=== PATIENT | female | born 1955 | race Two or more races ===

== ENCOUNTER 2023-03-29 19:16 | Inpatient (IN) | payer MEDICARE, OTHER ==
[~2023-03-29] VITALS: Ht 160 cm; Wt 93.0 kg
[2023-03-29 22:06] LABS: BASOPHILS % (AUTO) 0.5 % (0.0-2.0); EOSINOPHILS # (AUTO) 0.1 K/uL (0.0-0.7); EOSINOPHILS % (AUTO) 0.8 % (0.0-6.0); HEMATOCRIT 49 % (33-45); HEMOGLOBIN 16.2 g/dL (11.5-14.8); LYMPHOCYTES # (AUTO) 2.9 K/uL (0.8-4.8); LYMPHOCYTES % (AUTO) 35.8 % (20.0-44.0); MEAN CORPUSCULAR HEMOGLOBIN 29 PG (26.0-33.0); MEAN CORPUSCULAR HGB CONC 33 g/dl (31.0-36.0); MEAN CORPUSCULAR VOLUME 89 fL (82-100); MONOCYTES # (AUTO) 0.6 K/uL (0.1-1.30); MONOCYTES % (AUTO) 7.2 % (2.0-12.0); NEUTROPHILS # (AUTO) 4.5 K/uL (1.8-8.9); NEUTROPHILS % (AUTO) 55.7 % (43.0-81.0); PLATELET COUNT (AUTO) 182 K/uL (150-450); RED BLOOD CELL COUNT(AUTO) 5.49 MIL/uL (4.0-5.2); RED CELL DISTRIBUTION WIDTH 14.3 % (11.5-15.0); WHITE BLOOD COUNT (AUTO) 8.1 K/uL (4.3-11.0)
[2023-03-29 22:35] LABS: ALANINE AMINOTRANSFERASE 18 U/L (12-78); ALCOHOL, BLOOD < 3 mg/dL (0-10); ALKALINE PHOSPHATASE 118 U/L (46-116); ASPARTATE AMINOTRANSFERASE 12 U/L (15-37); BILIRUBIN,DIRECT 0.1 mg/dL (0.0-0.2); BILIRUBIN,TOTAL 0.6 mg/dL (0.2-1.0); CALCIUM, SERUM 9.9 mg/dL (8.5-10.1); CARBON DIOXIDE 27 mmol/L (21-32); CHLORIDE 104 mmol/L (98-107); CREATININE 1.1 mg/dL (0.6-1.3); GLUCOSE 110 mg/dL (74-106); POTASSIUM 4.4 mmol/L (3.5-5.1); SODIUM SERUM 140 mmol/L (136-145); TOTAL PROTEIN, SERUM 7.7 g/dL (6.4-8.2); UREA NITROGEN, BLOOD 11 mg/dL (7-18)
[2023-03-29 22:36] LABS: ACETAMINOPHEN 0 ug/ml (10-30); SALICYLATE 0.9 mg/dL (2.8-20.0)
[2023-03-30 00:33] LABS: APPEARANCE,URINE CLEAR (CLEAR); BILIRUBIN,URINE NEGATIVE (NEGATIVE); BLOOD, URINE NEGATIVE Ery/uL (NEGATIVE); COLOR,URINE YELLOW (YELLOW); KETONES,URINE NEGATIVE (NEGATIVE); LEUKOCYTE ESTERASE ,URINE NEGATIVE (NEGATIVE); NITRITE, URINE NEGATIVE (NEGATIVE); PROTEIN,URINE NEGATIVE (NEGATIVE); UGLUCOSE NEGATIVE (NEGATIVE); UROBILINOGEN,URINE 0.2 EU/dL (0.2)
[2023-03-30 00:41] LABS: AMPHETAMINE, URINE NEGATIVE (NEGATIVE); BARBITURATE, URINE NEGATIVE (NEGATIVE); BENZODIAZEPINE, URINE NEGATIVE (NEGATIVE); CANNABINOID, URINE NEGATIVE (NEGATIVE); COCCAINE, URINE NEGATIVE (NEGATIVE); OPIATE, URINE NEGATIVE (NEGATIVE); PHENCYCLIDINE SCREEN,URINE NEGATIVE (NEGATIVE)
[2023-03-30 06:45] VITALS: O2SAT 96
[2023-03-30] MEDS ORDERED: LORA-258 PO (08:23)
[2023-03-30] MEDS ORDERED: LEVO125T8 PO (08:23)
[2023-03-30] MEDS ORDERED: DIVA125C2 PO (08:23)
[2023-03-30] MEDS ORDERED: DULO60CA45 PO (08:23)
[2023-03-30] MEDS ORDERED: DOCU-141 PO (08:23)
[2023-03-30] MEDS ORDERED: MULT-754 PO (08:23)
[2023-03-30] MEDS ORDERED: NYST15PO4 TP (08:23)
[2023-03-30] MEDS ORDERED: RISP0.2515 PO (08:23)
[2023-03-30] MEDS ORDERED: LEVE1000 PO (08:23)
[2023-03-30] MEDS ORDERED: MAGN400O6 PO (08:23)
[2023-03-30] MEDS ORDERED: ZOLP5TAB8 PO (08:23)
[2023-03-30] MEDS ORDERED: ACET-868 PO (08:23)
[2023-03-30] MEDS ORDERED: IBUP-1955 PO (08:23)
[2023-03-30] MEDS ORDERED: ATOR10TA PO (08:23)
[2023-03-30] MEDS ORDERED: MAG30ORA PO (08:23)
[2023-03-30] MEDS ORDERED: LORAZEPAM 0.5 MG TABLET PO PRN (11:00)
[2023-03-30] MEDS ORDERED: MAGNESIUM HYDROXIDE 30 ML UDC PO PRN ×2 (11:00→11:30)
[2023-03-30] MEDS ORDERED: ACETAMINOPHEN 325 MG TABLET PO PRN ×2 (11:00→11:30)
[2023-03-30] MEDS ORDERED: MAG HYDROX/AL HYDROX/SIMETH 30 ML UDC PO PRN (11:00)
[2023-03-30] MEDS ORDERED: BLOOD SUGAR DIAGNOSTIC 1 EACH STRIP IN ONE (14:30)
[2023-03-30 16:00] VITALS: BP 108/59; TEMP 99; O2SAT 96
[2023-03-30] MEDS: LEVETIRACETAM (250 MG) 250 MG TABLET PO SCH (16:27)
[2023-03-30 20:39] VITALS: BP 100/47; TEMP 99; O2SAT 100
[2023-03-30] MEDS: NYSTATIN TOP POWDER 15 GM BOTTLE TP SCH (20:50)
[2023-03-30] MEDS: ATORVASTATIN 10 MG TABLET PO SCH ×2 (21:13→21:27)
[2023-03-30] MEDS ORDERED: ZOLPIDEM TARTRATE 10 MG TABLET PO PRN (22:00)
[2023-03-31 08:00] VITALS: BP 137/70; TEMP 98.6; O2SAT 98
[2023-03-31] MEDS: LEVETIRACETAM (250 MG) 250 MG TABLET PO SCH ×2 (08:17→17:00)
[2023-03-31] MEDS: MULTIVITAMINS,THERAGRAN 1 UDTAB TABLET PO SCH (08:17)
[2023-03-31] MEDS: DOCUSATE SODIUM 100 MG CAPSULE PO SCH (08:18)
[2023-03-31] MEDS: LEVOTHYROXINE SODIUM 125 MCG TABLET PO SCH (08:18)
[2023-03-31] MEDS: DIVALPROEX SODIUM 500 MG TABLET.DR PO SCH ×3 (10:00→21:00)
[2023-03-31] MEDS: NYSTATIN TOP POWDER 15 GM BOTTLE TP SCH ×2 (10:14→20:42)
[2023-03-31 16:00] VITALS: BP 106/61; TEMP 98.7; O2SAT 99
[2023-03-31 20:04] VITALS: BP 102/50; TEMP 98.8; O2SAT 96
[2023-03-31] MEDS: ATORVASTATIN 10 MG TABLET PO SCH (21:36)
[2023-04-01 08:00] VITALS: BP 108/56; TEMP 97.9; O2SAT 100
[2023-04-01] MEDS: ARIPIPRAZOLE 5 MG TABLET PO SCH ×3 (10:00→17:00)
[2023-04-01] MEDS: LEVETIRACETAM (250 MG) 250 MG TABLET PO SCH ×3 (10:22→17:23)
[2023-04-01] MEDS: LEVOTHYROXINE SODIUM 125 MCG TABLET PO SCH (10:22)
[2023-04-01] MEDS: DIVALPROEX SODIUM 500 MG TABLET.DR PO SCH ×2 (10:22→21:11)
[2023-04-01] MEDS: MULTIVITAMINS,THERAGRAN 1 UDTAB TABLET PO SCH (10:22)
[2023-04-01] MEDS: DOCUSATE SODIUM 100 MG CAPSULE PO SCH (10:28)
[2023-04-01] MEDS: NYSTATIN TOP POWDER 15 GM BOTTLE TP SCH ×2 (10:29→21:43)
[2023-04-01] MEDS: Z GUARD REMEDY 4 OZ OINT TP PRN (10:47)
[2023-04-01 16:00] VITALS: BP 109/61; TEMP 97.8; O2SAT 98
[2023-04-01 16:11] LABS: ALBUMIN 3.1 g/dL (3.4-5.0); BILIRUBIN,TOTAL 0.2 mg/dL (0.2-1.0); CALCIUM, SERUM 9.1 mg/dL (8.5-10.1); CREATININE 0.8 mg/dL (0.6-1.3); POTASSIUM 4.3 mmol/L (3.5-5.1); TOTAL PROTEIN, SERUM 6.3 g/dL (6.4-8.2)
[2023-04-01 16:13] LABS: CHOLESTEROL 140 mg/dL (<200); HDL CHOLESTEROL 48 mg/dL (40-60); LDL 70 mg/dL (0-99); TRIGLYCERIDES 97 mg/dL (30-150)
[2023-04-01 20:17] VITALS: BP 101/51; TEMP 98.4; O2SAT 97
[2023-04-01] MEDS: ATORVASTATIN 10 MG TABLET PO SCH (21:11)
[2023-04-02] MEDS: LEVOTHYROXINE SODIUM 125 MCG TABLET PO SCH ×2 (07:30→10:21)
[2023-04-02 08:00] VITALS: BP 109/57; TEMP 97.8; O2SAT 96
[2023-04-02] MEDS: ARIPIPRAZOLE 5 MG TABLET PO SCH (09:00)
[2023-04-02] MEDS: DOCUSATE SODIUM 100 MG CAPSULE PO SCH ×2 (09:00→10:21)
[2023-04-02] MEDS: LEVETIRACETAM (250 MG) 250 MG TABLET PO SCH ×2 (10:21→17:00)
[2023-04-02] MEDS: DIVALPROEX SODIUM 500 MG TABLET.DR PO SCH ×2 (10:21→21:15)
[2023-04-02] MEDS: MULTIVITAMINS,THERAGRAN 1 UDTAB TABLET PO SCH (10:21)
[2023-04-02] MEDS: Z GUARD REMEDY 4 OZ OINT TP PRN (11:58)
[2023-04-02] MEDS: NYSTATIN TOP POWDER 15 GM BOTTLE TP SCH ×2 (11:58→21:00)
[2023-04-02 16:00] VITALS: BP 107/48; TEMP 97.9; O2SAT 99
[2023-04-02 20:55] VITALS: BP 110/61; TEMP 98.4; O2SAT 98
[2023-04-02] MEDS: RISPERIDONE 1 MG TAB.RAPDIS PO SCH (21:00)
[2023-04-02] MEDS: OLANZAPINE 10 MG VIAL IM PRN (21:58)
[2023-04-02] MEDS: ATORVASTATIN 10 MG TABLET PO SCH (22:00)
[2023-04-03 08:00] VITALS: BP 106/65; TEMP 97.7; O2SAT 99
[2023-04-03] MEDS: DIVALPROEX SODIUM 500 MG TABLET.DR PO SCH ×2 (08:26→21:24)
[2023-04-03] MEDS: LEVETIRACETAM (250 MG) 250 MG TABLET PO SCH ×2 (08:26→16:20)
[2023-04-03] MEDS: DOCUSATE SODIUM 100 MG CAPSULE PO SCH (08:27)
[2023-04-03] MEDS: MULTIVITAMINS,THERAGRAN 1 UDTAB TABLET PO SCH (08:27)
[2023-04-03] MEDS: LEVOTHYROXINE SODIUM 125 MCG TABLET PO SCH (08:27)
[2023-04-03] MEDS: NYSTATIN TOP POWDER 15 GM BOTTLE TP SCH ×2 (09:00→21:00)
[2023-04-03] MEDS: RISPERIDONE 1 MG TAB.RAPDIS PO SCH ×2 (09:00→21:00)
[2023-04-03] MEDS: OLANZAPINE 10 MG VIAL IM PRN ×2 (09:48→22:08)
[2023-04-03 16:00] VITALS: BP 99/65; TEMP 98.2; O2SAT 96
[2023-04-03] MEDS: IBUPROFEN 600 MG TABLET PO PRN (16:20)
[2023-04-03] MEDS: ATORVASTATIN 10 MG TABLET PO SCH (21:24)
[2023-04-03] MEDS: MAG HYDROX/AL HYDROX/SIMETH 30 ML UDC PO PRN (23:09)
[2023-04-04 05:31] VITALS: BP 104/68; TEMP 97.6; O2SAT 98
[2023-04-04] MEDS: LEVOTHYROXINE SODIUM 125 MCG TABLET PO SCH (07:30)
[2023-04-04 08:00] VITALS: BP 119/76; TEMP 97.8; O2SAT 97
[2023-04-04] MEDS: DIVALPROEX SODIUM 500 MG TABLET.DR PO SCH ×2 (08:16→22:07)
[2023-04-04] MEDS: MULTIVITAMINS,THERAGRAN 1 UDTAB TABLET PO SCH (08:16)
[2023-04-04] MEDS: LEVETIRACETAM (250 MG) 250 MG TABLET PO SCH ×2 (08:17→16:49)
[2023-04-04] MEDS: RISPERIDONE 1 MG TAB.RAPDIS PO SCH ×2 (08:18→09:00)
[2023-04-04] MEDS: NYSTATIN TOP POWDER 15 GM BOTTLE TP SCH ×2 (08:27→21:00)
[2023-04-04] MEDS: DOCUSATE SODIUM 100 MG CAPSULE PO SCH (08:53)
[2023-04-04] MEDS: OLANZAPINE 10 MG VIAL IM PRN ×2 (09:18→22:27)
[2023-04-04 16:00] VITALS: BP 107/67; TEMP 97.6; O2SAT 98
[2023-04-04 20:19] VITALS: BP 102/56; TEMP 98.9; O2SAT 97
[2023-04-04] MEDS: risperiDONE-M 0.5 MG TAB.RAPDIS PO SCH (21:00)
[2023-04-04] MEDS: ATORVASTATIN 10 MG TABLET PO SCH (22:07)
[2023-04-05] MEDS: LEVOTHYROXINE SODIUM 125 MCG TABLET PO SCH (07:30)
[2023-04-05 08:00] VITALS: BP 128/75; TEMP 98.6; O2SAT 100
[2023-04-05] MEDS: DOCUSATE SODIUM 100 MG CAPSULE PO SCH (08:42)
[2023-04-05] MEDS: MULTIVITAMINS,THERAGRAN 1 UDTAB TABLET PO SCH (08:42)
[2023-04-05] MEDS: risperiDONE-M 0.5 MG TAB.RAPDIS PO SCH ×3 (08:43→17:00)
[2023-04-05] MEDS: DIVALPROEX SODIUM 500 MG TABLET.DR PO SCH ×2 (08:44→21:16)
[2023-04-05] MEDS: NYSTATIN TOP POWDER 15 GM BOTTLE TP SCH ×2 (08:53→21:31)
[2023-04-05] MEDS: LEVETIRACETAM (250 MG) 250 MG TABLET PO SCH ×2 (08:53→16:45)
[2023-04-05] MEDS: OLANZAPINE 10 MG VIAL IM PRN (09:38)
[2023-04-05] MEDS ORDERED: risperiDONE-M 0.5 MG TAB.RAPDIS PO SCH ×2 (14:30→22:00)
[2023-04-05 16:00] VITALS: BP 95/52; TEMP 99; O2SAT 96
[2023-04-05] MEDS ORDERED: OLANZAPINE 10 MG VIAL IM PRN (17:00)
[2023-04-05 20:13] VITALS: BP 99/57; TEMP 98.6; O2SAT 100
[2023-04-05] MEDS: ATORVASTATIN 10 MG TABLET PO SCH (21:16)
[2023-04-06] MEDS: IBUPROFEN 600 MG TABLET PO PRN ×3 (00:19→17:49)
[2023-04-06 06:58] LABS: BASOPHILS # (AUTO) 0.1 K/uL (0.0-0.2); EOSINOPHILS # (AUTO) 0.2 K/uL (0.0-0.7); EOSINOPHILS % (AUTO) 3.2 % (0.0-6.0); HEMATOCRIT 43 % (33-45); HEMOGLOBIN 14.1 g/dL (11.5-14.8); LYMPHOCYTES # (AUTO) 2.5 K/uL (0.8-4.8); LYMPHOCYTES % (AUTO) 47.8 % (20.0-44.0); MEAN CORPUSCULAR HEMOGLOBIN 30 PG (26.0-33.0); MEAN CORPUSCULAR HGB CONC 33 g/dl (31.0-36.0); MEAN CORPUSCULAR VOLUME 90 fL (82-100); MONOCYTES # (AUTO) 0.3 K/uL (0.1-1.30); MONOCYTES % (AUTO) 6.5 % (2.0-12.0); NEUTROPHILS # (AUTO) 2.2 K/uL (1.8-8.9); NEUTROPHILS % (AUTO) 41.5 % (43.0-81.0); PLATELET COUNT (AUTO) 140 K/uL (150-450); RED BLOOD CELL COUNT(AUTO) 4.72 MIL/uL (4.0-5.2); RED CELL DISTRIBUTION WIDTH 14.8 % (11.5-15.0); WHITE BLOOD COUNT (AUTO) 5.2 K/uL (4.3-11.0)
[2023-04-06 07:15] LABS: ALBUMIN 3.1 g/dL (3.4-5.0); BILIRUBIN,TOTAL 0.2 mg/dL (0.2-1.0); CALCIUM, SERUM 8.9 mg/dL (8.5-10.1); CREATININE 0.9 mg/dL (0.6-1.3); POTASSIUM 4.1 mmol/L (3.5-5.1); TOTAL PROTEIN, SERUM 6.4 g/dL (6.4-8.2)
[2023-04-06] MEDS: LEVOTHYROXINE SODIUM 125 MCG TABLET PO SCH ×2 (07:30→08:10)
[2023-04-06 08:00] VITALS: BP 130/71; TEMP 98; O2SAT 98
[2023-04-06] MEDS: DOCUSATE SODIUM 100 MG CAPSULE PO SCH (08:10)
[2023-04-06] MEDS: MULTIVITAMINS,THERAGRAN 1 UDTAB TABLET PO SCH (08:10)
[2023-04-06] MEDS: DIVALPROEX SODIUM 500 MG TABLET.DR PO SCH (08:11)
[2023-04-06] MEDS: LEVETIRACETAM (250 MG) 250 MG TABLET PO SCH ×2 (08:11→16:47)
[2023-04-06] MEDS: risperiDONE-M 0.5 MG TAB.RAPDIS PO SCH ×2 (08:11→09:00)
[2023-04-06] MEDS: NYSTATIN TOP POWDER 15 GM BOTTLE TP SCH ×2 (09:32→20:50)
[2023-04-06 16:00] VITALS: BP 126/68; TEMP 98; O2SAT 99
[2023-04-06] MEDS: DIVALPROEX SODIUM 125 MG TABLET.DR PO SCH (16:47)
[2023-04-06 20:34] VITALS: BP 109/55; TEMP 99; O2SAT 98
[2023-04-06] MEDS: OLANZAPINE 5 MG TABLET PO SCH (20:56)
[2023-04-06] MEDS: OLANZAPINE 10 MG VIAL IM PRN (20:57)
[2023-04-06] MEDS: ATORVASTATIN 10 MG TABLET PO SCH (21:09)
[2023-04-07] MEDS: LEVOTHYROXINE SODIUM 125 MCG TABLET PO SCH ×2 (07:30→08:21)
[2023-04-07 08:00] VITALS: BP 128/71; TEMP 98.3; O2SAT 98
[2023-04-07] MEDS: DOCUSATE SODIUM 100 MG CAPSULE PO SCH ×2 (08:54→09:00)
[2023-04-07] MEDS: MULTIVITAMINS,THERAGRAN 1 UDTAB TABLET PO SCH (08:54)
[2023-04-07] MEDS: DIVALPROEX SODIUM 125 MG TABLET.DR PO SCH ×2 (08:54→17:13)
[2023-04-07] MEDS: LEVETIRACETAM (250 MG) 250 MG TABLET PO SCH ×2 (08:54→17:13)
[2023-04-07] MEDS: OLANZAPINE 5 MG TABLET PO SCH ×2 (08:55→09:00)
[2023-04-07] MEDS: NYSTATIN TOP POWDER 15 GM BOTTLE TP SCH ×2 (08:55→20:19)
[2023-04-07] MEDS: OLANZAPINE 10 MG VIAL IM PRN (10:26)
[2023-04-07 16:00] VITALS: BP 114/62; TEMP 98.8; O2SAT 97
[2023-04-07] MEDS: OLANZAPINE ZYDIS 5 MG TAB.RAPDIS PO SCH (20:10)
[2023-04-07 20:57] VITALS: BP 129/62; TEMP 99.3; O2SAT 96
[2023-04-07] MEDS: ATORVASTATIN 10 MG TABLET PO SCH (21:11)
[2023-04-08] MEDS: LEVOTHYROXINE SODIUM 125 MCG TABLET PO SCH ×2 (07:21→07:25)
[2023-04-08 07:32] LABS: BASOPHILS % (AUTO) 0.5 % (0.0-2.0); EOSINOPHILS # (AUTO) 0.1 K/uL (0.0-0.7); EOSINOPHILS % (AUTO) 2.1 % (0.0-6.0); HEMATOCRIT 43 % (33-45); HEMOGLOBIN 14.1 g/dL (11.5-14.8); LYMPHOCYTES # (AUTO) 2.4 K/uL (0.8-4.8); LYMPHOCYTES % (AUTO) 45.5 % (20.0-44.0); MEAN CORPUSCULAR HEMOGLOBIN 30 PG (26.0-33.0); MEAN CORPUSCULAR HGB CONC 33 g/dl (31.0-36.0); MEAN CORPUSCULAR VOLUME 90 fL (82-100); MONOCYTES # (AUTO) 0.3 K/uL (0.1-1.30); NEUTROPHILS # (AUTO) 2.4 K/uL (1.8-8.9); NEUTROPHILS % (AUTO) 45.9 % (43.0-81.0); PLATELET COUNT (AUTO) 138 K/uL (150-450); RED BLOOD CELL COUNT(AUTO) 4.74 MIL/uL (4.0-5.2); RED CELL DISTRIBUTION WIDTH 14.4 % (11.5-15.0); WHITE BLOOD COUNT (AUTO) 5.2 K/uL (4.3-11.0)
[2023-04-08 07:57] LABS: BILIRUBIN,TOTAL 0.4 mg/dL (0.2-1.0); CALCIUM, SERUM 8.7 mg/dL (8.5-10.1); CREATININE 0.8 mg/dL (0.6-1.3); POTASSIUM 3.9 mmol/L (3.5-5.1); TOTAL PROTEIN, SERUM 6.2 g/dL (6.4-8.2)
[2023-04-08 08:00] VITALS: BP 105/60; TEMP 98; O2SAT 98
[2023-04-08] MEDS: DOCUSATE SODIUM 100 MG CAPSULE PO SCH (09:11)
[2023-04-08] MEDS: DIVALPROEX SODIUM 125 MG TABLET.DR PO SCH ×2 (09:11→16:26)
[2023-04-08] MEDS: LEVETIRACETAM (250 MG) 250 MG TABLET PO SCH ×2 (09:11→16:25)
[2023-04-08] MEDS: MULTIVITAMINS,THERAGRAN 1 UDTAB TABLET PO SCH (09:12)
[2023-04-08] MEDS: OLANZAPINE ZYDIS 5 MG TAB.RAPDIS PO SCH ×2 (09:12→21:08)
[2023-04-08] MEDS: IBUPROFEN 600 MG TABLET PO PRN ×2 (09:12→16:39)
[2023-04-08] MEDS: NYSTATIN TOP POWDER 15 GM BOTTLE TP SCH ×2 (09:15→21:08)
[2023-04-08 16:01] VITALS: BP 90/56; TEMP 98; O2SAT 97
[2023-04-08 20:00] VITALS: BP 132/61; TEMP 98.4; O2SAT 100
[2023-04-08] MEDS: ATORVASTATIN 10 MG TABLET PO SCH (21:08)
[2023-04-08] MEDS: MAG HYDROX/AL HYDROX/SIMETH 30 ML UDC PO PRN (23:10)
[2023-04-09] MEDS: IBUPROFEN 600 MG TABLET PO PRN (03:48)
[2023-04-09] MEDS: LEVOTHYROXINE SODIUM 125 MCG TABLET PO SCH (07:47)
[2023-04-09 08:00] VITALS: BP 115/56; TEMP 98.8; O2SAT 96
[2023-04-09] MEDS: LEVETIRACETAM (250 MG) 250 MG TABLET PO SCH ×2 (08:32→16:05)
[2023-04-09] MEDS: OLANZAPINE ZYDIS 5 MG TAB.RAPDIS PO SCH ×2 (08:32→21:39)
[2023-04-09] MEDS: DOCUSATE SODIUM 100 MG CAPSULE PO SCH (08:32)
[2023-04-09] MEDS: MULTIVITAMINS,THERAGRAN 1 UDTAB TABLET PO SCH (08:33)
[2023-04-09] MEDS: DIVALPROEX SODIUM 125 MG TABLET.DR PO SCH ×2 (08:33→16:20)
[2023-04-09] MEDS: NYSTATIN TOP POWDER 15 GM BOTTLE TP SCH ×2 (09:17→21:39)
[2023-04-09 16:00] VITALS: BP 125/58; TEMP 98.6; O2SAT 97
[2023-04-09 20:00] VITALS: BP 119/61; TEMP 98.7; O2SAT 98
[2023-04-09] MEDS: ATORVASTATIN 10 MG TABLET PO SCH (21:39)
[2023-04-10 08:00] VITALS: BP 107/62; TEMP 98.4; O2SAT 98
[2023-04-10] MEDS: NYSTATIN TOP POWDER 15 GM BOTTLE TP SCH ×2 (09:00→20:57)
[2023-04-10] MEDS: OLANZAPINE ZYDIS 5 MG TAB.RAPDIS PO SCH ×2 (09:28→20:55)
[2023-04-10] MEDS: LEVOTHYROXINE SODIUM 125 MCG TABLET PO SCH (09:28)
[2023-04-10] MEDS: DOCUSATE SODIUM 100 MG CAPSULE PO SCH (09:28)
[2023-04-10] MEDS: DIVALPROEX SODIUM 125 MG TABLET.DR PO SCH ×2 (09:28→16:44)
[2023-04-10] MEDS: MULTIVITAMINS,THERAGRAN 1 UDTAB TABLET PO SCH (09:28)
[2023-04-10] MEDS: LEVETIRACETAM (250 MG) 250 MG TABLET PO SCH ×2 (09:28→16:44)
[2023-04-10] MEDS: IBUPROFEN 600 MG TABLET PO PRN (13:22)
[2023-04-10 16:00] VITALS: BP 115/57; TEMP 98.6; O2SAT 100
[2023-04-10 20:00] VITALS: BP 105/63; TEMP 98.2; O2SAT 96
[2023-04-10 20:08] LABS: MAGNESIUM 1.9 mg/dL (1.8-2.4); PHOSPHORUS 4.1 mg/dL (2.5-4.9)
[2023-04-10] MEDS: ATORVASTATIN 10 MG TABLET PO SCH (20:56)
[2023-04-11] MEDS: IBUPROFEN 600 MG TABLET PO PRN (03:04)
[2023-04-11 08:00] VITALS: BP 113/60; TEMP 97.7; O2SAT 100
[2023-04-11] MEDS: LEVOTHYROXINE SODIUM 125 MCG TABLET PO SCH (08:28)
[2023-04-11] MEDS: DIVALPROEX SODIUM 125 MG TABLET.DR PO SCH (08:28)
[2023-04-11] MEDS: DOCUSATE SODIUM 100 MG CAPSULE PO SCH (08:28)
[2023-04-11] MEDS: LEVETIRACETAM (250 MG) 250 MG TABLET PO SCH (08:28)
[2023-04-11] MEDS: MULTIVITAMINS,THERAGRAN 1 UDTAB TABLET PO SCH (08:28)
[2023-04-11] MEDS: OLANZAPINE ZYDIS 5 MG TAB.RAPDIS PO SCH (08:28)
[2023-04-11] MEDS: NYSTATIN TOP POWDER 15 GM BOTTLE TP SCH (08:34)
[2023-04-12] MEDS ORDERED: LEVO150T8 PO (10:41)
== END 2023-04-11 14:30 | DRG 885 ==
LOC: ER 19:25 → GPS 03-30 09:55
PROVIDERS: ADMIT Psychiatry & Neurology Psychosomatic Medicine; ATTEND Internal Medicine
DX: F25.0 Schizoaffective disorder, bipolar type (principal); E44.0 Moderate protein-calorie malnutrition; F29 Unspecified psychosis not due to a substance or known physiological condition; E78.5 Hyperlipidemia, unspecified; E03.9 Hypothyroidism, unspecified; E11.9 Type 2 diabetes mellitus without complications; I25.10 Atherosclerotic heart disease of native coronary artery without angina pectoris; J44.9 Chronic obstructive pulmonary disease, unspecified; E66.9 Obesity, unspecified; E88.09 Other disorders of plasma-protein metabolism, not elsewhere classified; F41.9 Anxiety disorder, unspecified; I10 Essential (primary) hypertension; M19.90 Unspecified osteoarthritis, unspecified site; M79.7 Fibromyalgia; Z88.0 Allergy status to penicillin; Z88.2 Allergy status to sulfonamides; Z91.148 Patient's other noncompliance with medication regimen for other reason; Z20.822 Contact with and (suspected) exposure to COVID-19; Z68.36 Body mass index [BMI] 36.0-36.9, adult; Z73.6 Limitation of activities due to disability; M62.81 Muscle weakness (generalized); F32.A Depression, unspecified; I45.81 Long QT syndrome
CPT/HCPCS: 36415; 80048-TC; 80053-TC; 80061-TC; 80076-TC; 80164-TC; 83735-TC; 84100-TC; 84439-TC; 84443-TC; 85025-TC; G0480; J3490